=== PATIENT | female | born 1990 ===

== ENCOUNTER 2022-02-07 10:53 | Emergency (ER) | payer SELFPAY ==
[2022-02-07 12:24] VITALS: BP 123/73
--- NOTE | 2022-02-07 13:22 | Emergency Department Report ---
Minor Respiratory - HPI Chief Complaint: Upper Respiratory Infection Stated Complaint: FLU SX/BLEEDING Time Seen by Provider: 02/07/22 13:08 Duration: 1.5 weeks Minor Respiratory: Yes Rhinorrhea, Yes Sore Throat, Yes Able to Tolerate Fluids, Yes Cough, Yes Shortness of Breath, Yes Fever, No Ear Pain, No Chest Pain Other History: 31-year-old obese -German female presents to the emergen cy room for 1-1/2 weeks of intermittent sore throat runny nose body aches difficulty breathing and shortness of breath. Patient states she had a fever but did not measure it. Patient is unvaccinated for COVID and has not tested for COVID. Last menstrual period was 01/30/2022. She currently does not have a primary care provider. ED Review of Systems ROS: Stated complaint: FLU SX/BLEEDING Other details as noted in HPI Comment: All other systems reviewed and negative ED Past Medical Hx - Medications Home Medications: Home Medications Medication Instructions Recorded Confirmed Last Taken Type Azithromycin [Zithromax Z-DAKOTAH] 0 mg PO DAILY #6 tab 02/07/22 Unknown Rx Minor Respiratory Exam - Exam General: Vital signs noted. No distress. Alert and acting appropriately. HEENT: Yes Moist Mucous Membranes, No Pharyngeal Erythema, No Pharyngeal Exudates, No Rhinorrhea, No Conjuctival Injection, No Frontal Tenderness, No Maxillary Tenderness Ear: Neither TM Bulge, Neither TM Erythema, Neither EAC Pain, Neither EAC Discharge Neck: Yes Supple, No Adenopathy Lungs: Yes Good Air Exchange, No Wheezes, No Ronchi, No Stridor, No Cough, No Labored Respirations, No Retractions, No Use of Accessory Muscles, No Other Abnormal Lung Sounds Heart: Yes Regular, No Murmur Abdomen: Yes Normal Bowel Sounds, No Tenderness, No Peritoneal Signs Skin: No Rash, No Edema Neurologic: Alert and oriented, no deficits. Musculoskeletal: Unremarkable. ED Course Vital Signs 02/07/22 12:22 Temperature 98.3 F Pulse Rate 82 Respiratory 18 Rate Blood Pressure 123/73 [Right] O2 Sat by Pulse 98 Oximetry ED Medical Decision Making - Radiology Data Radiology results: report reviewed [facility] [address] [place] [address] XRay Report Signed Patient: HAJA DOMINGUEZ MR#: [id number] : 1990 Acct:[id number] Age/Sex: 31 / F ADM Date: 02/07/22 Loc: ED Attending Dr: Ordering Physician: CARYL BEAL Date of Service: 02/07/22 Procedure(s): XR chest routine 2V Accession Number(s): [id number] cc: CARYL BEAL Fluoro Time In Minutes: CHEST 2 VIEWS INDICATION: sob, cough. COMPARISON: none FINDINGS: Support devices: None. Heart: Within normal limits. Lungs/pleura: There is ill-defined linear airspace opacity in the left lower lobe behind the heart. This probably represents segmental atelectasis although early infiltrate could be considered if fevers present. The remainder of the lungs are clear. No pleural effusion or pneumothorax. Additional findings: None. IMPRESSION: Left lower lobe opacity as described, probable segmental atelectasis. See above. Otherwise unremarkable chest films. Signer Name: Theron Orosco Jr, MD Signed: 02/07/2022 2:00 PM Workstation Name: [id number] Transcribed By: TTR Dictated By: THERON OROSCO JR, MD Electronically Authenticated By: THERON OROSCO JR, MD Signed Date/Time: 02/07/221399 DD/ 99 TD/TT: - Medical Decision Making 31-year-old obese -German female presents to the emergency room for 1- 1/2 weeks of intermittent sore throat runny nose body aches difficulty breathing and shortness of breath. Patient states she had a fever but did not measure it. Patient is unvaccinated for COVID and has not tested for COVID. Last menstrual period was 01/30/2022. She currently does not have a primary care provider. Chest x-ray has been ordered. Discussed with patient that we do not test for COVID. She does not have signs of flu and she has a past the time that we would medicate for flu. Patient will be placed on a Z-D[place]otah for possible atelectasis versus pneumonia. Patient is to get COVID tested and follow-up with her primary care provider. Critical care attestation.: If time is entered above; I have spent that time in minutes in the direct care of this critically ill patient, excluding procedure time. ED Disposition Clinical Impression: Atelectasis of left lung Disposition: 01 HOME / SELF CARE / HOMELESS Is pt being admited?: No Does the pt Need Aspirin: No Condition: Stable Instructions: Atelectasis, Adult Additional Instructions: Complete antibiotics as prescribed. I recommend COVID testing. Increase your fluid intake. Dews-gwe-acowuqe Robitussin or Mucinex is appropriate for cough. Prescriptions: Azithromycin [Zithromax Z-DAKOTAH] 0 mg PO DAILY #6 tab Referrals: NORMAN BUTLER MD [Staff Physician] - 3-5 Days Forms: Work/School Release Form(ED) Time of Disposition: 14:10
--- NOTE | 2022-02-07 14:05 | XRay Report ---
CHEST 2 VIEWS INDICATION: sob, cough. COMPARISON: none FINDINGS: Support devices: None. Heart: Within normal limits. Lungs/pleura: There is ill-defined linear airspace opacity in the left lower lobe behind the heart. T his probably represents segmental atelectasis although early infiltrate could be considered if fevers present. The remainder of the lungs are clear. No pleural effusion or pneumothorax. Additional findings: None. IMPRESSION: Left lower lobe opacity as described, probable segmental atelectasis. See above. Otherwise unremarkab le chest films. Signer Name: Theron Orosco Jr, MD Signed: 02/07/2022 2:00 PM Workstation Name: [id number]
== END 2022-02-07 15:00 | disposition home or self-care (01) ==
LOC: ED 10:53
DX: J98.11 Atelectasis (principal)
CPT/HCPCS: 71046; 99283